=== PATIENT | female | born 1950 | race Caucasian/White ===

== ENCOUNTER 2021-04-12 06:44 | Outpatient (CLI) | payer OTHER, SELFPAY ==
--- NOTE | ~2021-04-12 | MR_ITS ---
EXAMINATION: MR cervical spine wo con DATE: 04/12/2021 07:29 INDICATION: Cervical radiculopathy. TECHNIQUE: Magnetic resonance imaging (MRI) of the cervical spine was performed without intravenous c ontrast. Sequences included sagittal T2-weighted FSE, sagittal T2-weighted FS FSE, sagittal T1-weight ed FSE, axial MERGE, and axial T2-weighted FSE. COMPARISON: None FINDINGS: There is 12 degrees levoscoliosis of cervicothoracic spine. There is kyphosis of cervical s pine. Vertebral body heights are normal. There is 2 mm anterolisthesis of C3 on C4, C4 on C5, and C6 on C7. There is mildly decreased disc height from C3-C4 through C5-C6 and moderately decreased disc h eight at C6-C7. The spinal cord signal intensity is normal. There is a multinodular goiter with nodul es in left thyroid lobe measuring up to 2.3 cm. The following disc levels are specifically discussed: C2-C3: The disc is bulging. There is mild right and severe left uncovertebral joint osteoarthritis. T here is severe right and moderate left facet joint osteoarthritis. There is mild bilateral neural for aminal stenosis. There is no central canal stenosis. C3-C4: The disc does not extend beyond the endplate margin. There is mild bilateral uncovertebral bon nt osteoarthritis. There is severe left facet joint osteoarthritis. There is ankylosis of right facet joint with moderate hypertrophy. There is mild right neural foraminal stenosis. There is mild centra l canal stenosis. C4-C5: The disc does not extend beyond the endplate margin. There is mild bilateral uncovertebral bon nt osteoarthritis. There is severe bilateral facet joint osteoarthritis. There is mild right neural f oraminal stenosis. There is no central canal stenosis. C5-C6: The disc does not extend beyond the endplate margin. There is mild bilateral uncovertebral bon nt osteoarthritis. There is ankylosis of right facet joint with severe hypertrophy. There is mild rig ht neural foraminal stenosis. There is no central canal stenosis. C6-C7: The disc is bulging. There is mild bilateral uncovertebral joint osteoarthritis. There is farooq re right and mild left facet joint osteoarthritis. There is mild right neural foraminal stenosis. The re is mild central canal stenosis. C7-T1: The disc does not extend beyond the endplate margin. There is no uncovertebral joint osteoarth ritis. There is severe bilateral facet joint osteoarthritis. There is mild right neural foraminal darlin nosis. There is no central canal stenosis. IMPRESSION: 1. Moderate cervical spondylosis. 2. Cervicothoracic levoscoliosis. Reviewed, dictated and finalized at location A. 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
--- NOTE | ~2021-04-12 | CT_ITS ---
EXAMINATION: CT brain wo con EXAM DATE: 04/12/2021 07:36 INDICATION: R51.9 - Headache, unspecified. TECHNIQUE: Spiral CT of the head was performed without contrast. Axial, coronal and sagittal images were reviewed. The dose-length product (DLP) for this examination was 605.33 mGy-cm. The exposure w as tailored according to patient size, and iterative reconstruction (ASIR) was used as additional dos e reduction technique. There is no prior study for comparison. FINDINGS: There is no acute intraparenchymal hemorrhage. No evidence of intraparenchymal brain mass lesion. No evidence of acute infarction. There is no mass effect or midline shift. The ventricles are normal in size. There are no extra-axial collections. There are no acute calvarial fractures. T he orbits are unremarkable. Soft tissue is unremarkable. The visualized sinuses and mastoid air kaykay ls are well aerated. IMPRESSION: Unremarkable head CT examination. Reviewed, dictated and finalized at location B. N DISTRIBUTOR
== END 2021-04-12 06:45 | disposition home or self-care (01) ==
LOC: ANHIMG 06:49
PROVIDERS: PCP Family Medicine; Visit Provider Family Medicine
DX: R51.9 Headache, unspecified (principal); M54.12 Radiculopathy, cervical region; M41.9 Scoliosis, unspecified; M47.813 Spondylosis without myelopathy or radiculopathy, cervicothoracic region
CPT/HCPCS: 70450; 72141

== ENCOUNTER 2021-06-14 11:34 | Outpatient (CLI) | payer OTHER, SELFPAY ==
--- NOTE | ~2021-06-14 | XR_ITS ---
EXAMINATION: XR shoulder RT min 2V DATE: 06/14/2021 11:55 INDICATION: Right shoulder pain TECHNIQUE: AP internally and externally rotated, AP oblique externally rotated and axillary views of the right shoulder were obtained. COMPARISON: None FINDINGS: Normal alignment. No fracture. Moderate right glenohumeral osteoarthritis with nonuniform joint spac e narrowing and marginal osteophytes about both the humeral head and inferior glenoid. Mild acromiocl avicular osteoarthritis. Visualized portions of the lungs are clear. Soft tissues are unremarkable. IMPRESSION: Polyarticular osteoarthritis, moderate at the right glenohumeral joint and mild at the right acromioc lavicular joint. Reviewed, dictated and finalized at location A. IMPRESSION: Polyarticular osteoarthritis, moderate at the right glenohumeral joint and mild at the right acromioclavicular joint.
--- NOTE | ~2021-06-14 | XR_ITS ---
EXAMINATION: XR shoulder LT min 2V DATE: 06/14/2021 11:55 INDICATION: Left shoulder pain. TECHNIQUE: 4 views of left shoulder were obtained. COMPARISON: None. FINDINGS: Bone alignment is normal. No fracture. There is mild osteoarthritis of glenohumeral joint a nd moderate osteoarthritis of acromioclavicular joint. IMPRESSION: 1. Polyarticular osteoarthritis. Reviewed, dictated and finalized at location A.
== END 2021-06-14 11:35 | disposition home or self-care (01) ==
PROVIDERS: PCP Family Medicine; Visit Provider Family Medicine
DX: M25.511 Pain in right shoulder (principal); M25.512 Pain in left shoulder; M19.012 Primary osteoarthritis, left shoulder; M19.011 Primary osteoarthritis, right shoulder
CPT/HCPCS: 73030

== ENCOUNTER 2022-02-27 08:16 | Outpatient (CLI) | payer OTHER, SELFPAY ==
--- NOTE | ~2022-02-27 | XR_ITS ---
XR sternum min 2V DATE: 02/27/2022 08:38 INDICATION: Mastodynia TECHNIQUE: Lateral and bilateral oblique views COMPARISON: None FINDINGS: No sternal fracture or bone destruction is detected. IMPRESSION: Negative Reviewed, dictated and finalized at location B. 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
== END 2022-02-27 08:17 | disposition home or self-care (01) ==
PROVIDERS: PCP Family Medicine; Visit Provider Family Medicine
DX: N64.4 Mastodynia (principal); R07.89 Other chest pain
CPT/HCPCS: 71120

== ENCOUNTER → 2022-02-28 08:06 | Outpatient (CLI) | payer OTHER, SELFPAY ==
--- NOTE | ~2022-02-28 | MMUS_ITS ---
EXAMINATION: MM diagnostic shi BI w onel, US breast RT limited HISTORY: Mastodynia TECHNIQUE: Craniocaudal, mediolateral, and mediolateral oblique 3-D tomosynthesis images of the breas ts were performed and synthetic 2-D images were generated. CAD analysis was submitted and interpreted . High resolution limited right breast ultrasound was performed. COMPARISON: 12/10/2019, 02/28/2017, 01/10/2016 BREAST PARENCHYMAL COMPOSITION: There are scattered areas of fibroglandular density. FINDINGS: MAMMOGRAPHIC FINDINGS: No suspicious mass, calcification, or architectural distortion are identified in either breast to sug gest malignancy. There has been no suspicious interval change. No mammographic correlate is identifie d for the reported pain of the medial right breast. ULTRASOUND: There is no evidence of focal abnormal solid or cystic mass in the vicinity of the patient's right br east pain. IMPRESSION: 1. No specific mammographic or sonographic correlate is identified for the patient's reported right b reast pain. Further evaluation at this time should be based on clinical assessment. Continued follow- up physical examination is recommended. 2. Recommend routine screening mammography in one year. BI-RADS Category 1: Negative Reviewed, dictated and finalized at location A. 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 No specific mammographic or sonographic correlate is identified for the amy ent's reported right breast pain. Further evaluation at this time should be [facility] ed on clinical assessment. Continued follow-up physical examination is recommen ded. 2. Recommend routine screening mammography in one year. BI-RADS Category 1: Negative
== END ==
PROVIDERS: PCP Family Medicine; Visit Provider Family Medicine
DX: N64.4 Mastodynia (principal)
CPT/HCPCS: 76642; 77062; 77066; G0279

== ENCOUNTER → 2022-04-02 09:11 | Outpatient (CLI) | payer OTHER, SELFPAY ==
--- NOTE | ~2022-04-02 | DEXA_ITS ---
Bone Density Report Name: SEFERINO DAMON Age: 72 Sex: Female Ethnicity: White Date of : 1950 Indication: postmenopausal; screening for osteoporosis; height loss; Referring Provider: JENNIFER GONCALVES Study: Bone densitometry was performed. Exam Date: April 02, 2022 Accession number: [id number] Bone Density: Region BMD T-score Z-score Classification AP Spine (L1, L2) 0.800 -1.6 0.4 Osteopenia Femoral Neck (Left) 0.618 -2.1 -0.2 Osteopenia Total Hip (Left) 0.717 -1.8 -0.3 Osteopenia Femoral Neck (Right) 0.588 -2.3 -0.5 Osteopenia Total Hip (Right) 0.723 -1.8 -0.2 Osteopenia Total Hip Mean 0.720 -1.8 -0.3 Osteopenia World Health Organization criteria for BMD impression classify patients as: Normal (T-score at or above -1.0), Osteopenia (T-score between -1.0 and -2.5), or Osteoporosis (T-score at or below -2.5). 10-year Fracture Risk(1): Major Osteoporotic Fracture 14% Hip Fracture 3.1% Reported Risk Factors: [place] (), Neck BMD=0.588, BMI=25.2 (1) FRAX(R) Version 3.08. Fracture probability calculated for an untreated patient. Fracture probability may be lower if the patient has received treatment. Clinical Information Provided by Patient: Has used the following medications: Vitamin D Patient maximum height was 66.5 Menopause Age: 51 Onset of menses at age 13 Number of children 3 Missed period for more than 6 months in a row Impression: The patient has low bone mass, based on the Right Femoral Neck T-score. The patient has an estimated ten-year risk of hip fracture of 3.1% and an estimated ten-year risk of major fracture of 14%, based on the WHO FRAX algorithm. Discussion: BONE DENSITY IS LOW AT ONE OR MORE SKELETAL SITES. THE PATIENT'S BMD AND CLINICAL RISK FACTORS CONTRIBUTE TO THIS PATIENT'S INCREASED RISK OF FRACTURE. This patient's lowest T-score is low at one or more skeletal sites. It meets the World Health Organization's (WHO) criteria for ?low bone mass? (T-score between -1.0 and -2.5). The patient's 10-year risk of hip fracture as calculated by FRAX exceeds the threshold where pharmacological therapy is recommended by the National Osteoporosis Foundation (NOF). However, all treatment decisions require clinical judgment and consideration of individual patient factors, including patient preferences, comorbidities, previous drug use, risk factors not captured in the FRAX model (e.g., frailty, falls, vitamin D deficiency, increased bone turnover, interval significant decline in bone density) and possible under or overestimation of fracture risk by FRAX. The patient should follow a healthful lifestyle (good nutrition with adequate calcium and vitamin D, and appropriate weight-bearing exercise). Follow-Up: Consider a repeat BMD and Vertebral Fracture Assessment (VFA) ex
== END ==
PROVIDERS: PCP Family Medicine; Visit Provider Family Medicine
DX: Z78.0 Asymptomatic menopausal state (principal); M85.89 Other specified disorders of bone density and structure, multiple sites
CPT/HCPCS: 77080

== ENCOUNTER → 2022-12-02 14:24 | Outpatient (CLI) | payer OTHER, SELFPAY ==
--- NOTE | ~2022-12-02 | XR_ITS ---
Right foot Technique: AP, oblique, and lateral views were obtained. Clinical History: Gout Findings: No acute fracture or dislocation is seen. There is hallux valgus with mild to moderate oste oarthritic change at the first metatarsophalangeal joint region. No erosive arthropathy evident. Soft tissues are unremarkable. Impression: Hallux valgus with mild to moderate osteoarthritis of the first MTP joint region. No erosive change identified. Reviewed, dictated and finalized at location M. Impression: Hallux valgus with mild to moderate osteoarthritis of the first MTP joint regio n. No erosive change identified.
== END ==
PROVIDERS: PCP Family Medicine; Visit Provider Family Medicine
DX: M20.11 Hallux valgus (acquired), right foot (principal); M19.071 Primary osteoarthritis, right ankle and foot; M10.9 Gout, unspecified
CPT/HCPCS: 73630

== ENCOUNTER → 2022-12-03 12:53 | Outpatient (CLI) | payer OTHER, SELFPAY ==
--- NOTE | ~2022-12-03 | MR_ITS ---
MRI of the right foot CLINICAL HISTORY: Infection TECHNIQUE: Axial T1-weighted, T2 fat-sat, and T1 fat-sat images, sagittal T1-weighted and STIR images , and coronal T1-weighted and T2 fat-sat images were performed. FINDINGS: There Focal erosive changes at the distal first metacarpal head, with associated marrow edema and T1 hypoin tensity. Remaining osseous structures are intact. Remaining joint spaces are intact. Small to moderat e joint effusion present at the first metacarpal phalangeal joint. Visualized flexor and extensor tendons appear intact. There is dorsal subcutaneous soft tissue edema of the foot. There is additional soft tissue edema throughout the first MTP joint region/great toe. N o abscess evident. There is mild diffuse edematous change of the intrinsic plantar musculature of the foot. Plantar fascia is intact. IMPRESSION: Erosive changes at the first metatarsal head with associated first MCP joint effusion and surrounding soft tissue edema. Diagnostic considerations could include early septic arthritis/osteomyelitis vers us other inflammatory arthropathies such as gout. Correlate clinically. Reviewed, dictated and finalized at location . IMPRESSION: Erosive changes at the first metatarsal head with associated first MCP joint ef fusion and surrounding soft tissue edema. Diagnostic considerations could inclu de early septic arthritis/osteomyelitis versus other inflammatory arthropathies such as gout. Correlate clinically.
== END ==
PROVIDERS: PCP Family Medicine; Visit Provider Nurse Practitioner Family
DX: L08.9 Local infection of the skin and subcutaneous tissue, unspecified (principal); M15.4 Erosive (osteo)arthritis; M25.474 Effusion, right foot
CPT/HCPCS: 73718

== ENCOUNTER 2022-12-03 15:32 | Observation (INO) | payer OTHER, SELFPAY ==
[2022-12-03] VITALS (23 sets, daily range): BP systolic 104–164; BP diastolic 72–101; PULSE 91–113; RESP 13–29; TEMP 37.2; O2SAT 94–100
--- NOTE | ~2022-12-03 | US_ITS ---
EXAMINATION: US medium jt asp w image DATE: 12/04/2022 11:20 INDICATION: Pain, swelling and erythema at the right first metatarsophalangeal joint. TECHNIQUE: The procedure including the risks and benefits was discussed with the patient. Risks discu ssed included bleeding, infection and allergic reaction. The patient understood the risks and agreed to proceed. The skin overlying the dorsal aspect of the right first metatarsophalangeal joint was pr epped and draped in usual sterile fashion. Anesthetic was administered with 1% lidocaine subcutaneou sly. A 25 gauge needle was advanced under continuous ultrasound observation into first the hypoechoic regions of the dorsal recess and subsequently the lateral recess of the first metatarsophalangeal jyoti int space. Attempted aspiration yielded no fluid. The joint was lavaged with approximately 0.3 mL pre servative-free 6 sterile saline with minimal return of fluid on subsequent aspiration. Nonetheless th e fluid was sent to lab for crystalline analysis. The needle was removed and the entry site was margaux jayjay and dressed. Post procedure ultrasound demonstrated no hemorrhage. FINDINGS: Ultrasound images demonstrate hypoechoic synovitis with multiple tiny echogenic foci surrou nding the right first metatarsophalangeal joint space and mildly distending the dorsal and medial rec esses. Subsequent images demonstrate the needle for aspiration and lavage advanced into the recess of the joint space. IMPRESSION: 1. Unsuccessful attempt at fluid aspiration from the right first metatarsophalangeal joint space. The hypoechoic regions correspond to the T2 hyperintensity on the prior MRI results from thickened synov itis with multiple tiny nonspecific echogenic foci suggestive of uric acid crystals in the setting of gout. 2. Attempted joint lavage yielded minimal return of fluid which was nonetheless sent to the lab for c rystal analysis. Reviewed, dictated and finalized at location A. IMPRESSION: 1. Unsuccessful attempt at fluid aspiration from the right first metatarsophala ngeal joint space. The hypoechoic regions correspond to the T2 hyperintensity o n the prior MRI results from thickened synovitis with multiple tiny nonspecific echogenic foci suggestive of uric acid crystals in the setting of gout. 2. Attempted joint lavage yielded minimal return of fluid which was nonetheless sent to the lab for crystal analysis.
--- NOTE | 2022-12-03 16:22 | ED.EXTPRO ---
HPI - Extremity Problem General Chief complaint: Extremity Problem,Nontraumatic <June Andrew PA-C - Last Filed: 12/05/22 10:16> Stated complaint: right foot infection <CHAD Mandujano Last Filed: 12/05/22 10:16> Time Seen by Provider: 12/03/22 16:59 <June Andrew PA-C - Last Filed: 12/05/22 10:16> Source: patient <CHAD Mandujano Last Filed: 12/05/22 10:16> Mode of arrival: wheelchair <CHAD Mandujano Last Filed: 12/05/22 10:16> Limitations: no limitations <CHAD Mandujano Last Filed: 12/05/22 10:16> History of Present Illness HPI Narrative: This is a 72 year old female that presents to the ER for right foot pain and swelling. Ongoing over the last week. She has been seen by her PCP for this. Diagnosed with possible gout. Started on a steroid without relief. Had an MRI outpatient today which she reports was inconclusive. Reports decreased range of motion due to pain and swelling. Denies fevers. <June Andrew PA-C - Last Filed: 12/05/22 10:16> This is a 72 year old female that presents to the ER for right foot pain and swelling. Ongoing over the last week. She has been seen by her PCP for this. Diagnosed with possible gout. Started on a steroid without relief. Also been taking antiinflammatories w/o relief. Had an MRI outpatient today which she reports was inconclusive. Reports decreased range of motion due to pain and swelling. Denies fevers. Outpatient MRI showed erosion of joint, differential septic arthritis versus osteomyelitis versus gout. <CHAD Love Last Filed: 12/04/22 01:21> Related Data Allergies/Adverse reactions: Allergies Allergy/AdvReac Type Severity Reaction Status Date / Time acetaminophen [From Vicodin] Allergy unknown Verified 12/03/22 15:37 amlodipine [From Norvasc] Allergy unknown Verified 12/03/22 15:37 codeine Allergy Unknown Verified 12/03/22 15:37 hydrochlorothiazide Allergy Unknown Verified 12/03/22 15:37 hydrocodone [From Vicodin] Allergy unknown Verified 12/03/22 15:37 levofloxacin [From Levaquin] Allergy unknown Verified 12/03/22 15:37 nitrofurantoin Allergy unknown Verified 12/03/22 15:37 [From Macrobid] Sulfa (Sulfonamide Allergy unknown Verified 12/03/22 15:37 Antibiotics) <June Andrew PA-C - Last Filed: 12/05/22 10:16> Review of Systems Review of Systems: CONSTITUTIONAL: Denies fever SKIN: Reports redness MUSCULOSKELETAL: Reports joint pain, and myalgia. NEUROLOGIC: Denies numbness <June Andrew PA-C - Last Filed: 12/05/22 10:16> All systems reviewed & are unremarkable except as noted in HPI and below <June Andrew PA-C - Last Filed: 12/05/22 10:16> [facility] Past Medical History Medical History: Medical History Allergies Anxiety Headache <June Andrew PA-C - Last Filed: 12/05/22 10:16> Family History Family History: Family History Father COPD (chronic obstructive pulmonary disease) Mother Cerebrovascular accident Hypertension Grandparent Carcinoma of colon Other Heart disease Grandparent Carcinoma of colon Diabetes mellitus <June Andrew PA-C - Last Filed: 12/05/22 10:16> Social History Social History: Social History Smoking status: Never smoker Second hand tobacco smoke exposure: No Alcohol intake: current Drinks per week: 2 Substance use: never Substance use type: does not use Lack of Transportation: No Lack of Food: Never True Current Housing: I Have Housing Concerned About Future Housing: No Difficulty Paying Gas/Electric Bills: No Difficulty Paying for Meds: No Currently Unemployed: No Education: Bachelor's Degree Difficulty w/ Childcare or Family Care: No Living arrangements:
[2022-12-03 16:27] LABS: Basophils Percent Auto 0.4 % (0.2-1.2); Eosinophils Percent Auto 0.5 % (0-4.4); Hematocrit 46.7 % (37.0-47.0); Hemoglobin 15.2 g/dL (12.0-15.0); Immature Granulocyte Absolute 0.02 K/mm3 (0.00-0.031); Immature Granulocyte Percent A 0.3 % (0-0.5); Lymphocytes Absolute Auto 1.19 K/mm3 (0.9-3.2); Lymphocytes Percent Auto 16.2 % (18.3-44.2); Mean Corpuscular HGB Conc 32.5 g/dl (32-36); Mean Corpuscular Hemoglobin 32.1 pg (26-34); Mean Corpuscular Volume 98.5 fl (80-100); Mean Platelet Volume 8.4 fl (7.4-10.4); Monocytes Absolute Auto 0.5 K/mm3 (0.1-0.6); Monocytes Percent Auto 7.4 % (2.6-8.5); Neutrophils Absolute Auto 5.5 K/mm3 (1.3-6.7); Neutrophils Percent Auto 75.2 % (45.5-73.1); Platelet Count Result 242 k/mm3 (150-375); Red Blood Count 4.74 M/mm3 (4.2-5.4); Red Cell Distribution Width 13.2 % (11.5-14.5); White Blood Count 7.3 K/mm3 (4.5-10.0)
[2022-12-03 16:36] LABS: Lactic Acid Reflex 1.7 mmol/L (0.7-2.0)
[2022-12-03 16:41] LABS: Alanine Aminotransferase 54 U/L (6-35); Albumin Level 4.6 g/dL (3.5-5.1); Alkaline Phosphatase 74 U/L (38-126); Anion Gap 7 mmol/L (8-16); Aspartate Amino Transferase 35 U/L (14-36); Bilirubin,Total 0.6 mg/dL (0.2-1.3); Blood Urea Nitrogen 21 mg/dL (7-17); Calcium 9.4 mg/dL (8.4-10.2); Carbon Dioxide 31 mmol/L (22-30); Chloride 101 mmol/L (98-107); Estimated CRCL calculation 53 ml/min; Estimated Glomerular Filt Rate > 60; Glucose 146 mg/dL (65-110); Potassium 3.6 mmol/L (3.4-5.0); Sodium 139 mmol/L (137-145); Uric Acid 6.4 mg/dL (2.5-7.5)
[2022-12-03 17:02] LABS: Erythrocyte Sedimentation Rate 23 mm/hr (0-20)
--- NOTE | 2022-12-03 19:39 | ED.EXTPRO ---
HPI - Extremity Problem General Chief complaint: Extremity Problem,Nontraumatic Stated complaint: right foot infection Time Seen by Provider: 12/03/22 16:59 Source: patient Mode of arrival: wheelchair Limitations: no limitations Related Data Allergies Allergy/AdvReac Type Severity Reaction Status Date / Time acetaminophen [From Vicodin] Allergy unknown Verified 12/03/22 15:37 amlodipine [From Norvasc] Allergy unknown Verified 12/03/22 15:37 codeine Allergy Unknown Verified 12/03/22 15:37 hydrochlorothiazide Allergy Unknown Verified 12/03/22 15:37 hydrocodone [From Vicodin] Allergy unknown Verified 12/03/22 15:37 levofloxacin [From Levaquin] Allergy unknown Verified 12/03/22 15:37 nitrofurantoin Allergy unknown Verified 12/03/22 15:37 [From Macrobid] Sulfa (Sulfonamide Allergy unknown Verified 12/03/22 15:37 Antibiotics) PMFSH Past Medical History Medical History Allergies Anxiety Headache Family History Family History Father COPD (chronic obstructive pulmonary disease) Mother Cerebrovascular accident Hypertension Grandparent Carcinoma of colon Other Heart disease Grandparent Carcinoma of colon Diabetes mellitus Social History Social History Smoking status: Never smoker Alcohol intake: current Drinks per week: 2 Substance use: never Lack of Transportation: No Lack of Food: Never True Current Housing: I Have Housing Concerned About Future Housing: No Difficulty Paying Gas/Electric Bills: No Difficulty Paying for Meds: No Currently Unemployed: No Education: Bachelor's Degree Difficulty w/ Childcare or Family Care: No Living arrangements: with family Course Vital Signs Vital signs: Vital Signs Temperature 99 F 12/03/22 15:33 Pulse Rate 113 H 12/03/22 15:33 Respiratory Rate 20 12/03/22 15:33 Blood Pressure 164/101 H 12/03/22 15:33 Pulse Oximetry 98 12/03/22 15:33 Oxygen Delivery Room Air 12/03/22 15:33 Temperature 99 F 12/03/22 15:33 Pulse Rate 113 H 12/03/22 15:33 Respiratory Rate 20 12/03/22 15:33 Blood Pressure 122/89 12/03/22 17:01 Pulse Oximetry 96 12/03/22 17:01 Oxygen Delivery Room Air 12/03/22 15:33 MDM - Extremity (Nontraumatic) Lab Data 12/03/22 16:20 12/03/22 16:20 Labs: Lab Results 12/03/22 Range/Units 16:20 WBC 7.3 (4.5-10.0) K/mm3 RBC 4.74 (4.2-5.4) M/mm3 Hgb 15.2 H (12.0-15.0) g/dL Hct 46.7 (37.0-47.0) % MCV 98.5 (80-100) fl MCH 32.1 (26-34) pg MCHC 32.5 (32-36) g/dl RDW 13.2 (11.5-14.5) % Plt Count 242 (150-375) k/mm3 MPV 8.4 (7.4-10.4) fl Immature Gran % (Auto) 0.3 (0-0.5) % Neut % (Auto) 75.2 H (45.5-73.1) % Lymph % (Auto) 16.2 L (18.3-44.2) % Perry % (Auto) 7.4 (2.6-8.5) % Eos % (Auto) 0.5 (0-4.4) % Baso % (Auto) 0.4 (0.2-1.2) % Lymph # (Auto) 1.19 (0.9-3.2) K/mm3 Perry # (Auto) 0.5 (0.1-0.6) K/mm3 Eos # (Auto) 0.0 (0-0.3) K/mm3 Baso # (Auto) 0.0 (0.0-0.1) K/mm3 Abs Immat Gran (auto) 0.02 (0.00-0.031) K/mm3 Absolute Neuts (auto) 5.5 (1.3-6.7) K/mm3 Absolute Nucleated RBC 0.0 (0.0-0.012) K/mm3 Nucleated RBC % 0.0 (0.0-0.2) % ESR 23 H (0-20) mm/hr Sodium 139 (137-145) mmol/L Potassium 3.6 (3.4-5.0) mmol/L Chloride 101 (98-107) mmol/L Carbon Dioxide 31 H (22-30) mmol/L Anion Gap 7 L (8-16) mmol/L BUN 21 H (7-17) mg/dL Creatinine 0.80 (0.7-1.0) mg/dL Estim Creat Clear Calc 53 ml/min Estimated GFR > 60 (59 - ) Glucose 146 H (65-110) mg/dL Lactic Acid 1.7 (0.7-2.0) mmol/L Uric Acid 6.4 (2.5-7.5) mg/dL Calcium 9.4 (8.4-10.2) mg/dL Total Bilirubin 0.6 (0.2-1.3) mg/dL AST 35 (14-36) U/L ALT 54 H (6-35) U/L Alkaline Phosphatase 74 (38-126) U/L C-Reactive Protein 2.0 H
[2022-12-03] MEDS: fentaNYL CITRATE INJ (*CRX) 100 MCG/2 ML VIAL 25 MCG IV PUSH (19:44)
--- NOTE | 2022-12-03 20:36 | PM.IMHP ---
H&P: HPI History of Present Illness Date/Time: 12/03/22 20:36 Chief Complaint: Right toe pain Narrative: This is a 72-year-old female with known significant past medical history patient presents to the emergency room due to right toe tenderness swelling ongoing for about a week had been seen at urgent care and at her primary care physician's office patient to call oral steroids for 4 days with no improvement was again seen at the primary care physician who suggested MRI of the foot and patient to come to the emergency room for evaluation. Patient denies any fevers, rigors, chills, nausea, vomiting no recent trauma. Preliminary workup has been essentially nonrevealing AC reactive protein was to MRI of the foot was reported as: Right foot Technique: AP, oblique, and lateral views were obtained. Clinical History: Gout Findings: No acute fracture or dislocation is seen. There is hallux valgus with mild to moderate osteoarthritic change at the first metatarsophalangeal joint region. No erosive arthropathy evident. Soft tissues are unremarkable. Impression: Hallux valgus with mild to moderate osteoarthritis of the first MTP joint region. No erosive change identified. MRI of the right foot CLINICAL HISTORY: Infection TECHNIQUE: Axial T1-weighted, T2 fat-sat, and T1 fat-sat images, sagittal T1-weighted and STIR images, and coronal T1-weighted and T2 fat-sat images were performed. FINDINGS: There Focal erosive changes at the distal first metacarpal head, with associated marrow edema and T1 hypointensity. Remaining osseous structures are intact. Remaining joint spaces are intact. Small to moderate joint effusion present at the first metacarpal phalangeal joint. Visualized flexor and extensor tendons appear intact. There is dorsal subcutaneous soft tissue edema of the foot. There is additional soft tissue edema throughout the first MTP joint region/great toe. No abscess evident. There is mild diffuse edematous change of the intrinsic plantar musculature of the foot. Plantar fascia is intact. IMPRESSION: Erosive changes at the first metatarsal head with associated first MCP joint effusion and surrounding soft tissue edema. Diagnostic considerations could include early septic arthritis/osteomyelitis versus other inflammatory arthropathies such as gout. Correlate clinically. Review of Systems Review of Systems: Right toe redness tenderness pain for 1 week Constitutional: Constitutional: Denies chills, Denies fatigue, Denies fever(s), Denies malaise, Denies night sweats and Denies weakness Eyes: Eyes: Denies change in vision ENT: Denies dysphagia, Denies nasal congestion, Denies nasal discharge and Denies odynophagia Cardiovascular: Cardiovascular: Denies chest pain, Denies leg edema, Denies radiating jaw, neck or arm pain and Denies palpitations Respiratory: Respiratory: Denies chest congestion, Denies cough, Denies excessive phlegm production, Denies pain on inspiration and Denies dyspnea Gastrointestinal: Gastrointestinal: Denies abdominal pain, Denies dyspepsia, Denies heartburn, Denies diarrhea, Denies loose stools, Denies nausea and Denies vomiting Genitourinary: Genitourinary: Denies dysuria Musculoskeletal: Musculoskeletal: Reports arthralgias and Reports joint swelling (RMPI) Integumentary/Breasts: Skin/Breast: Reports swelling, Reports erythema, Reports skin pain and Reports skin swelling Neurologic: Denies vertigo, Denies dizziness, Denies focal weakness and Denies Sensory deficit (Neuro) Psychiatric: Psychiatric: Reports no additional psychiatric complaints and Reports as per HPI Endocrine: Endocrine: Denies cold intolerance, Denies fatigue, Denies flushing, Denies heat intolerance, Denies polyphagia, Denies polydipsia and Denies palpitations Hematologic/Lymphatic: Hematologic/Lymphatic: Reports no additional hematologic/lymphatic complaints and Reports as per HPI Allergic/Immunologic: Allergic/Immuno
[2022-12-03] MEDS: CEFEPIME 2 GM/NS 50 ML 2 GM/50 ML BAG IVPB (21:12)
[2022-12-03] MEDS: VANCOMYCIN 1,250 MG/NS 250 ML 1,250 MG/250 ML BAG 166.67 MG IVPB (21:32)
--- NOTE | 2022-12-03 22:20 | PC.NURSE ---
patient receiving IV vancomycin. states that she is having scalp itching. provider aware
[2022-12-03] MEDS: diphenhydrAMINE HCl INJ 50 MG/ML VIAL 25 MG IV PUSH (22:53)
[2022-12-04] VITALS: BP 136/84; PULSE 104; RESP 14; TEMP 36.7; O2SAT 97
[2022-12-04 00:02] VITALS: BMI 25.3
--- NOTE | 2022-12-04 00:11 | ADMGEN ---
This patient, Marie Stratton, was admitted to 3 Med Surg Room 303-01. Patient/family oriented to hospital policies and general routines including ID bracelet, bed and alarms, visiting hours, pain management, procedures, bathroom and other care routines, personal items, smoking policy, room service/diet, and visiting hours. Information on how to activate the Rapid Response Team has been discussed. Patient/Family are encouraged to report perceived risks to care and to ask questions if they do not understand what they are told or what they should do.
[2022-12-04] MEDS: fentaNYL CITRATE INJ (*CRX) 100 MCG/2 ML VIAL 25 MCG IV PUSH ×3 (00:15→06:53)
[2022-12-04 06:00] VITALS: BP 131/95; PULSE 85; RESP 18; TEMP 37.2; O2SAT 95
[2022-12-04 06:17] LABS: Estimated CRCL calculation 59 ml/min; Estimated Glomerular Filt Rate > 60
[2022-12-04 06:23] LABS: Uric Acid 5.9 mg/dL (2.5-7.5)
[2022-12-04] MEDS: methylPREDNISolone SOD SUCC 125 MG VIAL IV PUSH (06:50)
[2022-12-04] MEDS: COLCHICINE 0.6 MG TABLET PO (09:41)
[2022-12-04] MEDS: CEFEPIME 2 GM/NS 50 ML 2 GM/50 ML BAG IVPB ×2 (09:42→20:42)
[2022-12-04 13:20] LABS: Crystals Synovial Fluid None Seen (None Seen)
[2022-12-04 14:00] VITALS: BP 132/80; PULSE 87; RESP 16; TEMP 36.9; O2SAT 94
--- NOTE | 2022-12-04 16:02 | PM.CNOR ---
Assessment and Plan Assessment and plan (1) Gout attack: Qualifiers: Gout site: toe Gout etiology: unspecified cause Laterality: right Qualified Code(s): M10.9 - Gout, unspecified Code(s): M10.9 - Gout, unspecified Status: Acute Assessment and Plan: Patient has what appears to be what appears to be gout of the right great toe classic podagra. The MRI has muddled things a bit, with a question of infection. I was told she had a streaking up her leg I do not see any today. I told her it is possible to get a superficial infection over the gouty inflammation. Cultures were taken although not much fluid was obtained. I think she is improving well and can probably be dismissed tomorrow. It would not be unreasonable to keep her on a week of Keflex. She should continue with the gout medicine as described. I told I would be happy to follow her up in the office if she can remain symptomatic. If she gets worse certainly she should call. (2) Inflammation of metatarsophalangeal joint: Code(s): M19.079 - Primary osteoarthritis, unspecified ankle and foot Status: Acute History of Present Illness HPI Consult date: 12/04/22 Chief complaint: R 1st toe redness/pain/swelling/poss septic arthri Narrative: Patient med last night with right foot pain. She has a history of gout. Unfortunately this was not responding to conservative care at this point. She had an MRI scan that suggested question of whether there was infection. I asked him to give her vancomycin over the night and she has been placed on steroids and colchicine for gout. Review of Systems Musculoskeletal: Musculoskeletal: Reports arthralgias and Reports joint swelling [facility] Past Medical History Medical History Allergies Anxiety Headache Family History Family History Father COPD (chronic obstructive pulmonary disease) Mother Cerebrovascular accident Hypertension Grandparent Carcinoma of colon Other Heart disease Grandparent Carcinoma of colon Diabetes mellitus Social History Social History Smoking status: Never smoker Second hand tobacco smoke exposure: No Alcohol intake: current Drinks per week: 2 Substance use: never Substance use type: does not use Lack of Transportation: No Lack of Food: Never True Current Housing: I Have Housing Concerned About Future Housing: No Difficulty Paying Gas/Electric Bills: No Difficulty Paying for Meds: No Currently Unemployed: No Education: Bachelor's Degree Difficulty w/ Childcare or Family Care: No Living arrangements: with family Spiritual care concerns: No Meds Home Medications and Allergies Home Medications Medication Instructions Recorded Confirmed Type No Home Medications 12/04/22 12/04/22 History Allergies Allergy/AdvReac Type Severity Reaction Status Date / Time acetaminophen [From Vicodin] Allergy unknown Verified 12/03/22 15:37 amlodipine [From Norvasc] Allergy unknown Verified 12/03/22 15:37 codeine Allergy Unknown Verified 12/03/22 15:37 hydrochlorothiazide Allergy Unknown Verified 12/03/22 15:37 hydrocodone [From Vicodin] Allergy unknown Verified 12/03/22 15:37 levofloxacin [From Levaquin] Allergy unknown Verified 12/03/22 15:37 nitrofurantoin Allergy unknown Verified 12/03/22 15:37 [From Macrobid] Sulfa (Sulfonamide Allergy unknown Verified 12/03/22 15:37 Antibiotics) Vital Signs Vital Signs - 24 hr 12/03/22 16:50 12/03/22 16:51 12/03/22 17:00 Temperature Pulse Rate Respiratory Rate Blood Pressure 122/84 Pulse Oximetry 97 97 96 12/03/22 17:01 12/03/22 19:45 12/03/22 17:02 Temperature Pulse Rate 99 Respiratory Rate 20 Blood Pressure 122/89 122/90 Pulse Oximetry 96 97 96
--- NOTE | 2022-12-04 18:13 | PM.IMPN ---
Progress Note: A&P Assessment and Plan (1) Inflammation of metatarsophalangeal joint: Code(s): M19.079 - Primary osteoarthritis, unspecified ankle and foot Status: Acute (2) Pain and swelling of toe of right foot: Code(s): M79.674 - Pain in right toe(s); M79.89 - Other specified soft tissue disorders Status: Acute Plan gout vs septic arthritis vs both, improved. f/u cultures and tailor appropiately Subjective Date/time seen: 12/04/22 18:13 Interval history: s/p arthrocentesis, she reports great improvement in swelling, redness, and pain. denies chills or fever, although may have had chills a few days ago Review of Systems Cardiovascular: Cardiovascular: Denies chest pain and Denies dyspnea Respiratory: Respiratory: Denies cough and Denies dyspnea Gastrointestinal: Gastrointestinal: Denies abdominal pain and Denies vomiting Exam Const: General: no acute distress, alert and Physically active Resp: Effort & Inspection: normal respiratory effort Auscultation: clear to auscultation bilaterally Cardio: Rate: regular rate Rhythm: regular rhythm Heart sounds: S1 normal heart sound present and S2 normal heart sound present GI: Inspection: non-distended GI Palp: No abdominal tenderness Auscultation: normal bowel sounds Extrem: Right upper extremity: no edema Objective Data Vital Signs Vital Signs: Vital Signs - 24 hr 12/03/22 19:45 12/03/22 19:25 12/03/22 19:46 Temperature Pulse Rate 99 100 Respiratory Rate 20 14 Blood Pressure 122/90 Pulse Oximetry 97 96 97 12/03/22 20:00 12/03/22 20:01 12/03/22 20:37 Temperature Pulse Rate 99 98 97 Respiratory Rate 14 13 23 H Blood Pressure 116/78 Pulse Oximetry 94 97 99 12/03/22 20:45 12/03/22 21:02 12/03/22 21:15 Temperature Pulse Rate 97 95 91 Respiratory Rate 17 27 H 17 Blood Pressure Pulse Oximetry 100 99 12/03/22 21:30 12/03/22 21:31 12/03/22 21:45 Temperature Pulse Rate 94 92 95 Respiratory Rate 17 21 H 18 Blood Pressure 104/72 Pulse Oximetry 100 98 100 12/03/22 22:00 12/03/22 22:01 12/03/22 22:15 Temperature Pulse Rate 96 98 113 H Respiratory Rate 14 17 22 H Blood Pressure 124/76 Pulse Oximetry 99 12/03/22 22:40 12/03/22 22:45 12/04/22 00:00 Temperature 98.0 F Pulse Rate 102 H 107 H 104 H Respiratory Rate 18 29 H 14 Blood Pressure 136/84 Pulse Oximetry 95 98 97 12/04/22 06:00 12/04/22 14:00 Temperature 99.0 F 98.4 F Pulse Rate 85 87 Respiratory Rate 18 16 Blood Pressure 131/95 H 132/80 Pulse Oximetry 95 94 Intake/Output Intake/Output: Intake & Output 12/01/22 12/02/22 12/03/22 12/04/22 23:59 23:59 23:59 23:59 Intake Total 50 1550 Balance 50 1550 Meds/Results Medications: Active Medications Generic Name Dose Route Start Last Admin Trade Name Freq PRN Reason Stop Dose Admin Acetaminophen 1,000 mg 12/04/22 04:14 Acetaminophen 500 Mg Tablet PO Q6H PRN Mild Pain (1-3) or Fever Colchicine 0.6 mg 12/04/22 09:00 12/04/22 09:41 Colchicine 0.6 Mg Tablet PO 0.6 mg QAM [facility] Administration Fentanyl Citrate 25 mcg 12/03/22 20:58 12/04/22 06:53 Fentanyl Citrate Inj (*Crx) 100 Mcg/2 Ml Vial IV PUSH 25 mcg Q2H PRN Administration Pain Rated 7-10 Cefepime HCl 2 gm in 50 mls @ 100 mls/hr 12/04/22 09:00 12/04/22 10:12 Maxipime 2 Gm/Ns 50 Ml IVPB Infused Q12HR [facility] Infusion Vancomycin HCl 1,500 mg in 500 mls @ 250 mls/hr 12/04/22 12:00 12/04/22 16:02 Vancomycin 1,500 Mg/D5w 500 Ml IVPB Infused Q18H [facility] Infusion Prednisone 40 mg 12/04/22 08:00 12/04/22 09:42 Prednisone 20 Mg Tablet PO Not Given DAILY@0800 [facility] Radiology Results: ITS Impressions Joint Aspiration/Injection 12/04/22 12:28 IMPRESSION: 1. Unsuccessful attempt at fluid aspiration from the right first metatarsophalangeal joint space. The hypoechoic regions correspond to the T2 hyperintensity on the prior
[2022-12-04 22:00] VITALS: BP 129/80; PULSE 91; RESP 18; TEMP 36.6; O2SAT 94
[2022-12-05 06:00] VITALS: BP 132/84; PULSE 83; RESP 20; TEMP 36.6; O2SAT 95
[2022-12-05 06:16] LABS: Basophils Percent Auto 0.1 % (0.2-1.2); Eosinophils Percent Auto 0.4 % (0-4.4); Hematocrit 42.2 % (37.0-47.0); Hemoglobin 13.3 g/dL (12.0-15.0); Immature Granulocyte Absolute 0.04 K/mm3 (0.00-0.031); Immature Granulocyte Percent A 0.5 % (0-0.5); Immature Platelet Fraction Pct 1.5 % (0.9-11.2); Lymphocytes Absolute Auto 1.65 K/mm3 (0.9-3.2); Mean Corpuscular HGB Conc 31.5 g/dl (32-36); Mean Corpuscular Hemoglobin 32.2 pg (26-34); Mean Corpuscular Volume 102.2 fl (80-100); Mean Platelet Volume 8.9 fl (7.4-10.4); Monocytes Absolute Auto 0.5 K/mm3 (0.1-0.6); Monocytes Percent Auto 6.5 % (2.6-8.5); Neutrophils Percent Auto 72.5 % (45.5-73.1); Platelet Count Result 257 k/mm3 (150-375); Red Blood Count 4.13 M/mm3 (4.2-5.4); Red Cell Distribution Width 13.2 % (11.5-14.5); White Blood Count 8.3 K/mm3 (4.5-10.0)
[2022-12-05 06:28] LABS: Anion Gap 9 mmol/L (8-16); Blood Urea Nitrogen 18 mg/dL (7-17); Calcium 9.2 mg/dL (8.4-10.2); Carbon Dioxide 23 mmol/L (22-30); Chloride 106 mmol/L (98-107); Estimated CRCL calculation 68 ml/min; Estimated Glomerular Filt Rate > 60; Glucose 114 mg/dL (65-110); Potassium 3.9 mmol/L (3.4-5.0); Sodium 138 mmol/L (137-145)
[2022-12-05] MEDS: COLCHICINE 0.6 MG TABLET PO (09:04)
[2022-12-05] MEDS: predniSONE 20 MG TABLET 40 MG PO (09:04)
[2022-12-05] MEDS: CEFEPIME 2 GM/NS 50 ML 2 GM/50 ML BAG IVPB (11:02)
--- NOTE | 2022-12-05 11:02 | PM.DS ---
DS: Admitting Diagnosis Discharge Date 12/05/22 Admitting Diagnosis joint pain DS: Discharge Diagnosis Discharge Diagnosis (1) Inflammation of metatarsophalangeal joint: Code(s): M19.079 - Primary osteoarthritis, unspecified ankle and foot Status: Acute DS: Summary Hospital Course Hospital Course: A 72F w/ suspected gout many years ago of right great toe presented with swelling/redness,effusion of her right 1st MTP joint. She had this in the past and it was treated as gout and resolved. She otherwise complained of chills a few days prior to presentation. Pt had arthrocentesis, MRI, and US and there wasn't strong evidence to support gout, however the aspirate was only 0.3ml of lavaged fluid so it could be equivocal. Her blood cultures were negative to date. In spite of the wide ddx that still exists, her pain and swelling did improve greatly with prednisone, colchicine and cefepime and vancomycin. therefore she is being discharged home and is to follow up with her PCP within 2 weeks. we had a lengthy discussion, and she is aware to return to ER if her symptoms worsen. she will take prednisone and colchicine for 7 days or until her symptoms completely resolved, along with Keflex for a week and a short course of omeprazole. pt was consulted to provided recommendations for offloading her foot due to pain. More than 30 minutes spent on discharge planning and documentation. Time Spent with Patient Time attestation: Total time spent providing and/or coordinating discharge services: Exam Const: General: comfortable and no acute distress Eyes: Pupils: Equal, round and reactive pupils present Resp: Effort & Inspection: normal respiratory effort Auscultation: clear to auscultation bilaterally Cardio: Rate: regular rate Rhythm: regular rhythm GI: GI Palp: Yes Soft to palpation Auscultation: normal bowel sounds Extrem: General: no edema Other: right great toe, podagra, however greatly improved , almost resolved erythema and edema, mild TTP to deep palpation DS: Data Data Completed and Pending Labs on day of discharge: Labs from last 24 hours 12/05/22 12/04/22 05:26 11:05 WBC 8.3 RBC 4.13 L Hgb 13.3 Hct 42.2 MCV 102.2 H MCH 32.2 MCHC 31.5 L RDW 13.2 Plt Count 257 MPV 8.9 Immature Gran % (Auto) 0.5 Neut % (Auto) 72.5 Lymph % (Auto) 20.0 Stevens % (Auto) 6.5 Eos % (Auto) 0.4 Baso % (Auto) 0.1 L Lymph # (Auto) 1.65 Stevens # (Auto) 0.5 Eos # (Auto) 0.0 Baso # (Auto) 0.0 Abs Immat Gran (auto) 0.04 H Absolute Neuts (auto) 6.0 Absolute Nucleated RBC 0.0 Nucleated RBC % 0.0 % Immature Plt Fraction 1.5 Sodium 138 Potassium 3.9 Chloride 106 Carbon Dioxide 23 Anion Gap 9 BUN 18 H Creatinine 0.60 L Estim Creat Clear Calc 68 Estimated GFR > 60 Glucose 114 H Calcium 9.2 Procalcitonin 0.0 Synovial Crystals None seen Preliminary micro results at discharge 12/03/22 16:36 Blood Culture - Preliminary Blood 12/03/22 16:30 Blood Culture - Preliminary Blood Discharge Plan Discharge Attending physician on discharge: Monica Chen Consulting providers: Jose Pena; June Andrew Discharging Clinician: Monica Chen Patient Disposition: Home, Self-Care Activity: may shower Diet: as tolerated Patient Instructions: Antibiotic Form Stand Alone Forms: General Discharge Information Follow-up/Referrals: Giancarlo Pang MD [Primary Care Provider] - 2 Weeks (follow up on gout) Discharge Medications: New prednisone 20 mg Tablet 40 mg PO DAILY@0800 Qty: 7 0RF Rx Instructions: You can stop this medication when your gout flare resolves. colchicine (gout) 0.6 mg tablet 0.6 mg PO BID 7 Days Qty: 14 0RF Rx Instructions: You can stop this medication 48 hours after gout flare resolves. omeprazole 20 mg capsule,delayed release(DR/EC) 20 mg PO DAILY Qty: 14 0RF
== END 2022-12-05 14:00 | disposition home or self-care (01) ==
LOC: ANHED 18:02 → ANH3MEDSUR 23:24
PROVIDERS: Physician Assistant; Radiology Diagnostic Radiology; Admitting Provider Internal Medicine; Emergency Provider Physician Assistant; PCP Family Medicine; Visit Provider General Practice
DX: M19.071 Primary osteoarthritis, right ankle and foot (principal); M20.11 Hallux valgus (acquired), right foot; M25.476 Effusion, unspecified foot; F41.9 Anxiety disorder, unspecified; F10.90 Alcohol use, unspecified, uncomplicated
CPT/HCPCS: 20606; 36415; 80048; 80053; 82565; 83605; 84145; 84550; 85025; 85055; 85652; 86140; 87040; 89060; 96365; 96366; 96367; 96374; 96375; 96376; 97161; 99285; A9270; G0378; J0692; J1200; J2930; J3010; J3370; J7512

== ENCOUNTER 2022-12-09 10:27 | Emergency (ER) | payer OTHER, SELFPAY ==
[2022-12-09 10:33] VITALS: BP 148/97; PULSE 93; RESP 18; TEMP 36.8; O2SAT 97
[2022-12-09 11:13] VITALS: BP 152/109; PULSE 93; RESP 16; O2SAT 95
[2022-12-09 11:16] VITALS: BP 152/109; PULSE 89; RESP 13; O2SAT 95
[2022-12-09 11:46] VITALS: BP 144/100; PULSE 92; RESP 16; O2SAT 93
--- NOTE | 2022-12-09 12:09 | ED.EXTPRO ---
HPI - Extremity Problem General Chief complaint: Extremity Problem,Nontraumatic Stated complaint: R foot pain? Time Seen by Provider: 12/09/22 12:06 Source: patient History of Present Illness HPI Narrative: Fracture 72 years old white female healthy otherwise came to the emergency room by private car for follow-up of gouty arthritis and possible bacterial infection of the right metatarsophalangeal joint. Patient was hospitalized and discharged 5 days ago on colchicine, prednisone and Keflex for gouty arthritis and possible bacterial infection patient reported that her symptoms are probably improving probably less painful probably less swelling. Patient does not want to say it is better or not better. Not clear in her answer. She denies any fever, chills, nausea, vomiting, still taking home medications. According to Dr. Pena report that patient was improving prior to discharge and should follow-up with him as outpatient. Patient did not do that and came to us for follow-up. Related Data Allergies Allergy/AdvReac Type Severity Reaction Status Date / Time amlodipine [From Norvasc] Allergy unknown Verified 12/09/22 11:19 codeine Allergy Unknown Verified 12/09/22 10:43 hydrochlorothiazide Allergy Unknown Verified 12/09/22 10:43 hydrocodone [From Vicodin] Allergy unknown Verified 12/09/22 10:43 levofloxacin [From Levaquin] Allergy unknown Verified 12/09/22 10:43 nitrofurantoin Allergy unknown Verified 12/09/22 10:43 [From Macrobid] Sulfa (Sulfonamide Allergy unknown Verified 12/09/22 10:43 Antibiotics) Review of Systems Review of Systems: All systems reviewed & are unremarkable except as noted in HPI and below PMFSH Past Medical History Medical History Allergies Anxiety Headache Family History Family History Father COPD (chronic obstructive pulmonary disease) Mother Cerebrovascular accident Hypertension Grandparent Carcinoma of colon Other Heart disease Grandparent Carcinoma of colon Diabetes mellitus Social History Social History Smoking status: Never smoker Second hand tobacco smoke exposure: No Alcohol intake: current Drinks per week: 2 Substance use: never Substance use type: does not use Lack of Transportation: No Lack of Food: Never True Current Housing: I Have Housing Concerned About Future Housing: No Difficulty Paying Gas/Electric Bills: No Difficulty Paying for Meds: No Currently Unemployed: No Education: Bachelor's Degree Difficulty w/ Childcare or Family Care: No Living arrangements: with family Spiritual care concerns: No Exam Narrative: General appearance: Well-developed, well-nourished Skin: Normal color Head: Normocephalic, nontraumatic Eyes: Clear conjunctiva ENT: Oropharynx normal, ears normal, nose normal Neck: Supple, nontender Chest and respiratory: Airway patent, no respiratory distress, no accessory muscle use Heart: Regular rate/rhythm Abdomen: Soft, nontender, no organomegaly, quiet bowel sounds Vascular: Normal peripheral pulses, normal capillary refill. Musculoskeletal: Right metatarsophalangeal joint slightly diffusely tender, no erythema, no rash or discharge Neurologic: Alert and oriented ?3, [employer] is normal as tested, no gross motor deficit Course Consultations Consultation #1: Dr. Pena Outpatient follow-up at 1 PM tomorrow Date: 12/09/22 Time: 13:05 Vital Signs Vital signs: Vital Signs Temperature 36.8 C 12/09/22 10:33 Pulse Rate 93 12/09/22 10:33 Respiratory
[2022-12-09 13:22] VITALS: BP 145/101; PULSE 80; RESP 16; O2SAT 100
== END 2022-12-09 13:24 | disposition home or self-care (01) ==
PROVIDERS: Emergency Provider Emergency Medicine; PCP Family Medicine
DX: M25.50 Pain in unspecified joint (principal)
CPT/HCPCS: 99281

== ENCOUNTER 2023-09-23 08:37 | Outpatient (CLI) | payer OTHER, SELFPAY | END 2023-09-23 08:38 | disposition home or self-care (01) | LOC: ANHAUDIO 08:38 | PROVIDERS: PCP Family Medicine; Visit Provider Otolaryngology | DX: H90.6 Mixed conductive and sensorineural hearing loss, bilateral (principal); H65.492 Other chronic nonsuppurative otitis media, left ear | CPT/HCPCS: 92557; 92567 ==